=== PATIENT | female | born 1960 | race Caucasian/White ===

== ENCOUNTER 2018-02-04 13:42 | Emergency (ER) | payer OTHER ==
[~2018-02-04] VITALS: Ht 167.6 cm; Wt 70.4 kg
[~2018-02-04 13:42] MED LIST: BIRTH CONTROL MED; LISINOPRIL; [UNRECOGNIZED DRUG - OTHER]
[2018-02-04 14:54] LABS: HEMATOCRIT 43.8 % (36.0-46.0); HEMOGLOBIN 14.8 G/DL (11.9-15.5); MCH 30.9 PG (29.0-34.0); MCHC 33.8 G/DL (30.0-36.0); MCV 91.4 FL (83-99); PLATELET COUNT 257 K/uL (156-360); RBC DIS.WIDTH-CV 12.4 % (11.8-14.6); RBC DIS.WIDTH-SD 41.5 % (39-53); RED BLOOD COUNT 4.79 M/uL (3.80-5.20); WHITE BLOOD COUNT 8.3 K/uL (4.1-10.2)
[2018-02-04 15:03] LABS: CHLORIDE 107 mEq/L (99-109); POTASSIUM 3.9 mEq/L (3.7-5.4); SODIUM 143 mEq/L (136-147)
[2018-02-04 15:04] LABS: GLUCOSE 87 mg/dL (70-99)
[2018-02-04 15:08] LABS: CREATININE 0.7 mg/dL (0.6-1.3); GFR ESTIMATE (CALCULATED) > 59 mL/min/
[2018-02-04 15:09] LABS: UREA NITROGEN (BUN) 17 mg/dL (9-23)
[2018-02-04 15:15] LABS: TROP-I INTERPRETATION NEGATIVE; TROPONIN-I < 0.01 ng/mL (0.0-0.30)
[2018-02-04 17:25] LABS: TROP-I INTERPRETATION NEGATIVE; TROPONIN-I < 0.01 ng/mL (0.0-0.30)
[2018-02-04] MEDS ORDERED: VENTOLIN HFA18 GM IH (17:45)
[2018-02-04 18:09] VITALS: BP 137/90
== END 2018-02-04 18:10 | disposition home or self-care (01) ==
LOC: RME 13:42 → EME 13:42 → RME 18:10
PROVIDERS: Physician Assistant
DX: J98.01 Acute bronchospasm (principal); Z87.442 Personal history of urinary calculi
CPT/HCPCS: 71046; 80048; 84484; 85027; 93005; 94640; 99281; 99283